=== PATIENT | female | born 1965 | race Caucasian/White ===

== ENCOUNTER 2017-08-20 16:07 | Emergency (ER) | payer BC, OTHER ==
[2017-08-20 16:26] VITALS: BP 139/78; PULSE 99; RESP 18; TEMP 100.5
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
[2017-08-20] MEDS ORDERED: KETOROLAC 60 MG/2 ML VIAL IM STA (17:49)
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
== END 2017-08-20 18:49 | disposition home or self-care (01) ==
LOC: EC 16:07
DX: E04.1 Nontoxic single thyroid nodule (principal); M54.2 Cervicalgia; M54.5 Low back pain; M54.6 Pain in thoracic spine; I10 Essential (primary) hypertension; J45.909 Unspecified asthma, uncomplicated; F32.9 Major depressive disorder, single episode, unspecified; F41.9 Anxiety disorder, unspecified; F17.200 Nicotine dependence, unspecified, uncomplicated; Z79.51 Long term (current) use of inhaled steroids; Z79.899 Other long term (current) drug therapy; V43.52XA Car driver injured in collision with other type car in traffic accident, initial encounter; Y92.410 Unspecified street and highway as the place of occurrence of the external cause
CPT/HCPCS: 99284; 96372; 72072; 72100; 72125; 70450; J1885

== ENCOUNTER → 2022-06-25 | Outpatient (CLI) | payer OTHER, MEDICARE ==
--- NOTE | 2022-06-25 11:33 | CT ---
EXAMINATION TYPE: CT chest wo con DATE OF EXAM: 06/25/2022 COMPARISON: Chest x-ray June 17, 2022 HISTORY: Pulmonary Fibrosis CT DLP: 1076.7 mGycm. Automated Exposure Control for Dose Reduction was Utilized. TECHNIQUE: CT scan of the thorax is performed without IV contrast. High resolution protocol with 1 m m sequences obtained in 10 mm intervals in supine and prone technique. FINDINGS: LUNGS: Focal mild linear scarring anterior right upper to midlung series 9 image 81. Focal mild to mo derate linear scarring in the left midlung laterally near axial image 121. No significant peripheral reticulation or fibrosis. No pleural effusion or pneumothorax seen bilaterally. No bronchiectasis. Lo bulated contour anterior aspect right hemidiaphragm is noted. MEDIASTINUM: Lack of IV contrast and technique are noted to limit evaluation for mediastinal and shayna cially hilar adenopathy. There are no definitive greater than 1 cm mediastinal lymph nodes. No card iomegaly or pericardial effusion is seen. OTHER: Surgical change to the cervical spine is seen on localizer. Sagittal changes of lumbar spine i s partially imaged on localizer. Dystrophic calcification right breast axial image 7 series 7 is pres ent. IMPRESSION: Mild scattered linear scarring bilaterally. No significant peripheral reticulation or fib rosis noted.
--- NOTE | 2022-06-25 11:36 | FL ---
EXAMINATION TYPE: FL sniff test without CXR DATE OF EXAM: 06/25/2022 COMPARISON: Same day high resolution chest CT and chest x-ray June 17, 2022 HISTORY: Pulmonary fibrosis. Shortness of breath since COVID infection in March. History of asthma. TECHNIQUE: Fluoroscopic assisted sniff test. FINDINGS: Fluoroscopic guidance was provided during sniff test procedure performed by myself. A tot al of 52 seconds of fluoroscopic time was utilized during the procedure and 20 spot images are acquir ed. Diaphragm position thought within normal limits on frontal view. There is symmetric and satisfactory inferior motion of both hemidiaphragms on inspiration and symmetric and satisfactory superior motion on expiration. IMPRESSION: No hemidiaphragm paralysis identified.
== END | disposition home or self-care (01) ==
LOC: RADCTMAIN 09:41
PROVIDERS: ATTEND Internal Medicine Critical Care Medicine
DX: J84.10 Pulmonary fibrosis, unspecified (principal)
CPT/HCPCS: 71250; 76000

== ENCOUNTER → 2023-08-11 | Outpatient (CLI) | payer MEDICARE ==
--- NOTE | 2023-08-13 11:07 | MR ---
EXAMINATION TYPE: MR brain wo/w con DATE OF EXAM: 08/11/2023 COMPARISON: None HISTORY: Anosmia. CONTRAST: Performed utilizing 9 mL intravenous Gadavist gadolinium contrast. TECHNIQUE: Multiplanar, multiecho imaging on a 3.0 Ara magnet is performed through the brain. Stud y is performed within 24 hours of arrival to the hospital. The craniovertebral junction is normal. The pituitary is normal. Cribriform plate appears unremarka ble. Diffusion-weighted imaging is performed. No abnormal hyperintensity is present to suggest an acute i ntracranial infarct or acute ischemic change. There is some mild scattered punctate subcortical and deep white matter changes, likely on the basis of chronic white matter ischemic change. Differential diagnosis would include multiple sclerosis, vicki pam headaches, Lyme disease, vasculitis. Following contrast administration, no abnormal enhancement is evident. Ventricles and sulci are appropriate for the patient age. IMPRESSION: 1. No suspicious abnormality to account for patient's anosmia. 2. Scattered subcortical white matter changes can be related to microvascular ischemic change.
== END | disposition home or self-care (01) ==
LOC: RADMRIMAIN 11:16
PROVIDERS: ATTEND Otolaryngology
DX: G93.89 Other specified disorders of brain (principal); R43.0 Anosmia
CPT/HCPCS: 70553; A9585

== ENCOUNTER → 2025-03-20 | Day surgery (SDC) | payer MEDICARE ==
--- NOTE | 2025-04-03 14:23 | MM ---
Risk Values: [place] 5 year model risk: 1.7%. NCI Lifetime model risk: 9.6%. Prior Study Comparison: 09/11/2008 Bilateral Diagnostic Mammogram, [facility]. 10/23/2009 Bilateral Diagnostic Mammogram, [facility]. 11/22/2010 Bilateral Diagnostic Mammogram, [facility]. Pathology Description: Marker Left Behind. Specimen Radiograph. Calcium Found: Yes Approach: Lateral to Medial Needle Type: Eviva Cores: 7 Skin Nicks: 1 Gauge: 9 no problems The procedure of stereotactic guided core biopsy was explained to the patient. Benefits, alternatives, and risks were discussed. An informed consent was then obtained. The shortness pathway for biopsy was chosen. Shortness pathway was lateral approach. A vacuum assisted biopsy gun was used to obtain multiple core samples. The patient tolerated the procedure well without any immediate complication. The patient was kept in the radiology department for short stay after the procedure and then discharged home in stable condition. Targeted calcifications are identified in specimen mammogram. Post biopsy mammogram performed shows the clip to appear in satisfactory position relative to the targeted area of concern on the preprocedure images. Impression: Successful, Uncomplicated Stereotactic Guided Core Biopsy Of Area Of Concern In The right Breast. [facility], , 03/20/2025 1:49 PM. Pathology Results: Result: Benign, Fibrocystic change. Pathology and radiology were reviewed. Findings are concordant. RIGHT BREAST, STEREOTACTIC CORE BIOPSY: Fibrocystic change with columnar cell change, mild chronic mastitis and fibroadenomatoid change with calcification. Current specimen negative for in situ or invasive carcinoma. Overall Assessment: Benign Management: Diagnostic Mammogram of the right breast in 6 months. Electronically signed and approved by: Bryce Landrum DO
== END ==
LOC: RADMAMWWP 10:00
PROVIDERS: ATTEND Family Medicine
DX: N61.0 Mastitis without abscess (principal); R92.8 Other abnormal and inconclusive findings on diagnostic imaging of breast
CPT/HCPCS: 88305